=== PATIENT | male | born 1960 | race Caucasian/White ===

== ENCOUNTER → 2019-04-07 | Outpatient (CLI) | payer OTHER ==
[~2019-04-07] MED LIST: APIX5TAB PO; DIGO125T76 PO; FLEC100T PO; MAGN400T36 PO; MELO15TA24 PO; METO25TA91 PO; OMNIPAQUE 350 MG/ML, 150 ML BOTTLE ONE; magnesium PO
== END | disposition home or self-care (01) ==
LOC: CFH 13:34
PROVIDERS: ATTEND Internal Medicine Cardiovascular Disease
DX: I48.0 Paroxysmal atrial fibrillation (principal); I48.92 Unspecified atrial flutter
CPT/HCPCS: 75572; Q9967

== ENCOUNTER 2019-04-08 06:39 | Observation (INO) | payer OTHER ==
[2019-04-07 12:44] VITALS: BP 137/79
[2019-04-07 13:13] LABS: BASOPHILS # (AUTO) 0.04 x10^3/uL (0-0.1); BASOPHILS % (AUTO) 1 % (0-1); EOSINOPHILS # (AUTO) 0.16 x10^3/uL (0-0.4); EOSINOPHILS % (AUTO) 2 % (1-7); LYMPHOCYTES # (AUTO) 2.68 x10^3/uL (1-3.4); LYMPHOCYTES % (AUTO) 36 % (22-44); MD NO; MEAN CORPUSCULAR HEMOGLOBIN 30.2 pg (27.5-34.5); MEAN CORPUSCULAR HGB CONC 33.3 g/dL (33.2-36.2); MEAN CORPUSCULAR VOLUME 90.8 fL (81-97); MEAN PLATELET VOLUME 6.7 fL (7.4-10.4); MONOCYTES # (AUTO) 0.61 x10^3/uL (0.2-0.8); MONOCYTES % (AUTO) 8 % (2-9); NEUTROPHILS # (AUTO) 4.04 x10^3/uL (1.8-6.8); NEUTROPHILS % (AUTO) 54 % (42-75); PLATELET COUNT 278 x10^3/uL (130-400); RED BLOOD COUNT 5.12 x10^6/uL (4.38-5.82); RED CELL DISTRIBUTION WIDTH 13.7 % (9.4-14.8)
[2019-04-07 13:24] LABS: ALBUMIN 3.9 g/dL (3.4-5.0); ANION GAP 7 mmol/L (5-15); CALCIUM 8.8 mg/dL (8.5-10.1); CHLORIDE 112 mmol/L (98-107)
[2019-04-07 13:28] LABS: ALANINE AMINOTRANSFERASE 29 U/L (12-78); ALKALINE PHOSPHATASE 60 U/L (45-117); BILIRUBIN,TOTAL 0.7 mg/dL (0.2-1.0); CREATININE 0.73 mg/dL (0.7-1.3); TOTAL PROTEIN 6.9 g/dL (6.4-8.2)
[~2019-04-08] VITALS: Ht 185.4 cm; Wt 117.6 kg
[~2019-04-08 06:39] MED LIST changes: -APIX5TAB PO; -MELO15TA24 PO; -OMNIPAQUE 350 MG/ML, 150 ML BOTTLE ONE
[2019-04-08] MEDS ORDERED: SODIUM CHLORIDE 0.9% 1,000 ML IV SCH ×2 (06:50→07:00)
[2019-04-08] MEDS ORDERED: LIDOCAINE 1%, 20ML ONE (07:07)
[2019-04-08] MEDS ORDERED: MELO15TA24 PO (07:17)
[2019-04-08] MEDS ORDERED: MIDAZOLAM 1 MG/ML, 2ML ONE (07:42)
[2019-04-08] MEDS ORDERED: FENTANYL PF 100 MCG/2ML ONE ×3 (07:42→12:07)
[2019-04-08] MEDS ORDERED: LIDOCAINE-MPF 2% ,5ML ONE (07:42)
[2019-04-08] MEDS ORDERED: SUCCINYLCHOLINE 20 MG/ML, 10ML ONE (07:42)
[2019-04-08] MEDS ORDERED: HEPARIN 1,000 UNITS/ML, 10ML ONE ×3 (07:43→10:58)
[2019-04-08] MEDS ORDERED: DEXAMETHASONE 4 MG/ML, 1ML ONE ×2 (07:43)
[2019-04-08] MEDS ORDERED: LIDOCAINE GEL 2%, 5ML ONE (07:59)
[2019-04-08] MEDS ORDERED: PROMETHAZINE 25 MG/ML, 1ML IV PRN (08:00)
[2019-04-08] MEDS ORDERED: FENTANYL PF 100 MCG/2ML IV PRN (08:00)
[2019-04-08] MEDS ORDERED: HYDROmorphone 2 MG/ML, 1ML IVPush PRN (08:00)
[2019-04-08] MEDS ORDERED: OXYcodone 5 MG/5 ML ORAL.SOL UDC PO PRN (08:00)
[2019-04-08] MEDS ORDERED: ONDANSETRON 2MG/ML, 2ML IV PRN (08:00)
[2019-04-08] MEDS ORDERED: hydrALAzine 20 MG/ML, 1ML IV PRN (08:00)
[2019-04-08] MEDS ORDERED: EPHEDRINE 50 MG/ML, 1ML IVPush PRN (08:00)
[2019-04-08] MEDS ORDERED: ACETAMINOPHEN 325 MG TABLET PO PRN ×2 (08:00→12:30)
[2019-04-08] MEDS ORDERED: LABETALOL 5MG/ML, 20ML IV PRN (08:00)
[2019-04-08] MEDS ORDERED: MEPERIDINE/PF 25MG/ML,1ML IVPush PRN (08:00)
[2019-04-08] MEDS ORDERED: KETOROLAC 30 MG/1 ML ONE (08:19)
[2019-04-08] MEDS ORDERED: GLYCOPYRROLATE 0.2MG/1ML, 5ML ONE (10:31)
[2019-04-08] MEDS ORDERED: ONDANSETRON 2MG/ML, 2ML ONE (10:31)
[2019-04-08] MEDS ORDERED: NEOSTIGMINE 1 MG/ML, 10ML ONE (10:31)
[2019-04-08] MEDS ORDERED: ROCURONIUM 10MG/ML,5ML ONE ×2 (10:57)
[2019-04-08] MEDS ORDERED: APIXABAN 5 MG TABLET ONE (13:22)
[2019-04-08] MEDS: APIXABAN 5 MG TABLET PO SCH (13:23)
[2019-04-08 14:00] VITALS: BP 117/62
[2019-04-08 21:49] VITALS: BP 113/67
[2019-04-08] MEDS: FLECAINIDE 100MG TABLET PO SCH (21:49)
[2019-04-09 03:21] VITALS: BP 117/72
[2019-04-09] MEDS: APIXABAN 5 MG TABLET PO SCH (08:02)
[2019-04-09] MEDS: FLECAINIDE 100MG TABLET PO SCH (08:02)
[2019-04-09] MEDS ORDERED: MELOXICAM 15 MG TABLET PO SCH (09:00)
[2019-04-09] MEDS ORDERED: MAGNESIUM OXIDE 400 MG TABLET PO SCH (09:00)
[2019-04-09] MEDS ORDERED: DIGOXIN 0.125 MG TABLET PO SCH (09:00)
[2019-04-09] MEDS ORDERED: APIX5TAB PO (11:32)
[2019-04-09] MEDS ORDERED: FLU VACC QS2019-20 36MOS UP/PF 0.5 ML IM ONE (13:00)
== END 2019-04-09 14:13 | disposition home or self-care (01) ==
LOC: CACL 06:39 → ORIP 12:25 → 5SO 14:05 → DCLOUNGE 04-09 13:52
PROVIDERS: ADMIT Internal Medicine Cardiovascular Disease; ATTEND Internal Medicine Cardiovascular Disease
DX: I48.91 Unspecified atrial fibrillation (principal); I48.92 Unspecified atrial flutter; I10 Essential (primary) hypertension; Z79.01 Long term (current) use of anticoagulants
CPT/HCPCS: 36415; 71046; 80053; 85025; 85347; 93306; 93312; 93321; 93325; 93613; 93655; 93656; 93657; 93662; C1730; C1732; C1759; C1766; C1893; C1894; G0378; J0330; J1100; J1644; J1885; J2250; J2405; J2710; J3010; J3490

== ENCOUNTER 2019-04-27 11:00 | Day surgery (SDC) | payer OTHER ==
[~2019-04-27] VITALS: Ht 185.4 cm; Wt 112.7 kg
[~2019-04-27 11:00] MED LIST changes: +APIX5TAB PO; +MELO15TA24 PO
[2019-04-27] MEDS ORDERED: METO25TA35 PO (13:35)
[2019-04-27 13:36] VITALS: BP 112/79
[2019-04-27 13:40] LABS: ANION GAP 6 mmol/L (5-15); CALCIUM 8.8 mg/dL (8.5-10.1); CHLORIDE 110 mmol/L (98-107)
[2019-04-27 13:41] LABS: CREATININE 0.96 mg/dL (0.7-1.3)
[2019-04-27] MEDS ORDERED: PROPOFOL 10 MG/ML, 20ML ONE (13:57)
[2019-04-27] MEDS ORDERED: ACETAMINOPHEN 325 MG TABLET ONE (14:25)
[2019-04-27] MEDS ORDERED: ACETAMINOPHEN 325 MG TABLET PO ONE (14:30)
== END 2019-04-27 15:50 | disposition home or self-care (01) ==
LOC: CACL 11:00
PROVIDERS: ATTEND Internal Medicine Cardiovascular Disease
DX: I48.4 Atypical atrial flutter (principal); I48.0 Paroxysmal atrial fibrillation; I10 Essential (primary) hypertension; G47.33 Obstructive sleep apnea (adult) (pediatric); E66.3 Overweight; Z68.32 Body mass index [BMI] 32.0-32.9, adult; Z79.01 Long term (current) use of anticoagulants; Z79.1 Long term (current) use of non-steroidal anti-inflammatories (NSAID); Z79.899 Other long term (current) drug therapy
CPT/HCPCS: 36415; 80048; 92960; 93005; J2704